=== PATIENT | male | born 1970 | race Caucasian/White ===

== ENCOUNTER 2019-05-10 21:34 | Inpatient (IN) ==
[2019-05-10] MEDS ORDERED: GEODON IM ONE (21:48)
[2019-05-10] MEDS ORDERED: BENADRYL IM ONE (21:48)
[2019-05-10] MEDS ORDERED: STERILE WATER INJ. INJ ONE (21:48)
[2019-05-10] MEDS ORDERED: ATIVAN IM ONE (21:48)
[2019-05-10] MEDS ORDERED: HALDOL IM ONE (21:49)
[2019-05-10] MEDS ORDERED: GEODON ONE (21:54)
[2019-05-10] MEDS ORDERED: HALDOL ONE (21:54)
[2019-05-10] MEDS ORDERED: BENADRYL ONE (21:54)
[2019-05-10] MEDS ORDERED: ATIVAN ONE (21:54)
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
[2019-05-10] MEDS ORDERED: NS 1,000 ML IV ONE ×2 (22:21→23:43)
[2019-05-10 22:57] LABS: UR AMPHETAMINES QUAL PRESUMPTIVE POSITIVE (NONE DETECT); UR BARBITUATES QUAL NONE DETECTED (NONE DETECT); UR BENZODIAZEPIN QUAL NONE DETECTED (NONE DETECT); UR CANNABINOIDS QUAL NONE DETECTED (NONE DETECT); UR COCAINE QUAL NONE DETECTED (NONE DETECT); UR METHADONE QUAL NONE DETECTED (NONE DETECT); UR OPIATES QUAL NONE DETECTED (NONE DETECT); UR OXYCODONE QUAL NONE DETECTED (NONE DETECT); UR PCP QUAL NONE DETECTED (NONE DETECT)
[2019-05-10 23:07] LABS: INR 1.08; PROTIME 14.1 Seconds (11.0-16.0)
[2019-05-10 23:08] LABS: PTT 23.9 Seconds (22.3-41.8)
[2019-05-10 23:12] LABS: AGAP 21; ALB/GLOB RATIO 1.8; ALBUMIN 4.4 g/dL (3.5-5.0); ALKALINE PHOSPHATASE 50 U/L (32-122); BUN 9 mg/dL (8-22); CHLORIDE 99 mmol/L (98-107); COSMO 275; CREATININE 1.2 mg/dL (0.7-1.2); ESTIMATED GFR > 60; GLUCOSE 107 mg/dL (70-104); GOT 22 U/L (10-34); GPT 14 U/L (10-44); POTASSIUM 3.5 mmol/L (3.5-5.1); SODIUM 138 mmol/L (136-145); TCO2 18 mmol/L (25-35); TOTAL BILIRUBIN 0.38 mg/dL (0.20-1.00); TOTAL PROTEIN 6.8 g/dL (6.3-8.3)
[2019-05-10 23:16] LABS: BASO# 0.01 X1000 (0.0-0.2); BASO% 0.1 % (0.0-0.8); HEMATOCRIT 39.2 % (42.0-52.0); HEMOGLOBIN 13.9 g/dL (14.0-18.0); IMM GRAN# 0.02 X1000 (0.0-0.04); IMM GRAN% 0.2 % (0.0-0.5); LYMPH# 0.77 X1000 (1.2-3.4); LYMPH% 6.6 % (20.5-51.1); MCH 33.3 PG (27-31); MCHC 35.5 g/dL (33-37); MONO# 0.84 X1000 (0.11-0.59); MONO% 7.2 % (1.7-9.3); MPV 9.5 FL (7.4-10.4); NEUT# 9.99 X1000 (1.4-6.5); NEUT% 85.9 % (42.2-75.2); PLT 281 X1000 (130-400); RBC 4.17 XMIL (4.7-6.1); RDW 12.4 % (11.5-14.5); WBC 11.63 X1000 (4.8-10.8)
[2019-05-11 00:08] LABS: CK INDEX 1.6 (0.0-2.5); CK-MB 9.47 ng/mL (0.0-5.0)
[2019-05-11] MEDS ORDERED: NS 1,000 ML IV ONE ×2 (00:32→02:07)
--- NOTE | 2019-05-11 04:42 | EKG Report ---
Test Performed on : 05/10/2019 11:19:53 PM Test Reason : POSSIBLE OD Blood Pressure : / mmHG Vent. Rate : 094 BPM Atrial Rate : 094 BPM P-R Int : 168 ms QRS Dur : 104 ms QT Int : 388 ms P-R-T Axes : 048 -32 033 degrees QTc Int : 485 ms Normal sinus rhythm. Left axis deviation Possible Inferior infarct , age undetermined Abnormal ECG No previous ECGs available Unconfirmed Result
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
[2019-05-11] MEDS ORDERED: ZOFRAN IV PRN (05:29)
[2019-05-11] MEDS ORDERED: TYLENOL PO PRN (05:29)
[2019-05-11] MEDS: NS 1,000 ML IV SCH ×3 (05:52→19:00)
[2019-05-11 05:57] LABS: IRON SATURATION 14 %; TIBC 242 ug/dL; TOTAL IRON 34 ug/dL (53-167); UNBOUND IRON 208 ug/dL (112-346)
[2019-05-11] MEDS: THIAMINE 100 MG in NS 50 ML IV SCH (06:01)
[2019-05-11 06:16] LABS: FERRITIN 149 ng/mL (30-400)
--- NOTE | 2019-05-11 09:47 | Diag Imaging Result Doc PS360 ---
EXAM: CT HEAD/C-SPINE W/O CONTRAST INDICATION: HEAD INJURY TECHNIQUE: This exam was performed using automated exposure control, adjustment of mA or kV according to patient size, and/or use of iterative reconstruction technique. COMPARISON: None. FINDINGS: Head: There is no definite acute infarct given the limited sensitivity of CT versus MRI. There is no discrete intracranial mass, mass effect, or intracranial hemorrhage. The surrounding soft tissues are essentially unremarkable. The calvaria is intact. C-spine: There is multilevel moderate degenerative disc disease seen throughout the cervical spine with endplate marginal osteophyte formation. This appears to be most significant at C6-7 where there is an osteophyte is causing moderate central canal and left neuroforaminal stenosis. There are varying degrees of foraminal stenosis throughout the cervical spine. Otherwise, there is no discrete fracture, subluxation, or intrinsic osseous lesion involving the cervical spine. There is fragmentation at the tip of the anterior spine of the maxilla. This is of unknown acuity. In the right clinical scenario, an acute fracture is possible. Please correlate clinically for point tenderness just under the nose near the midline. The surrounding soft tissues are essentially unremarkable. IMPRESSION: 1.No evidence of acute intracranial pathology. 2.Moderate multilevel degenerative arthropathy but no evidence of fracture or other definite acute C-spine injury. 3.Small bony fragment at the tip of the anterior maxillary spine of unknown acuity. Please correlate clinically. Electronically signed by Kevon Nicholas 05/11/2019 9:44 AM
[2019-05-11 13:40] LABS: CK INDEX 1.4 (0.0-2.5); CK-MB 14.71 ng/mL (0.0-5.0)
[2019-05-12] MEDS: NS 1,000 ML IV SCH ×4 (01:04→20:28)
[2019-05-12] MEDS: THIAMINE 100 MG in NS 50 ML IV SCH (04:34)
[2019-05-12 06:46] LABS: AGAP 7; BUN 7 mg/dL (8-22); CALCIUM 7.4 mg/dL (8.8-10.2); CHLORIDE 109 mmol/L (98-107); CK PROFILE 958 U/L (24-204); COSMO 278; CREATININE 0.8 mg/dL (0.7-1.2); ESTIMATED GFR > 60; GLUCOSE 102 mg/dL (70-104); MAGNESIUM 1.8 mg/dL (1.5-2.7); POTASSIUM 3.9 mmol/L (3.5-5.1); SODIUM 140 mmol/L (136-145); TCO2 24 mmol/L (25-35)
[2019-05-12 07:09] LABS: CK INDEX 1.1 (0.0-2.5); CK-MB 10.07 ng/mL (0.0-5.0)
--- NOTE | 2019-05-12 07:38 | EKG Report ---
Test Performed on : 05/12/2019 06:59:35 AM Test Reason : chest pain Blood Pressure : / mmHG Vent. Rate : 068 BPM Atrial Rate : 068 BPM P-R Int : 178 ms QRS Dur : 102 ms QT Int : 434 ms P-R-T Axes : 054 -22 032 degrees QTc Int : 461 ms Normal sinus rhythm. with sinus arrhythmia. Normal ECG When compared with ECG of 10-MAY-2019 23:19, (Unconfirmed) No significant change was found Confirmed by Jeremías YI, Vladimir Hahn ([id number]) on 05/14/2019 9:37:21 PM
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
[2019-05-13] MEDS: NS 1,000 ML IV SCH ×3 (03:58→11:31)
[2019-05-13] MEDS: THIAMINE 100 MG in NS 50 ML IV SCH ×2 (04:27→07:12)
[2019-05-13 06:20] LABS: AGAP 8; BUN 6 mg/dL (8-22); CALCIUM 7.4 mg/dL (8.8-10.2); CHLORIDE 106 mmol/L (98-107); COSMO 277; CREATININE 0.8 mg/dL (0.7-1.2); ESTIMATED GFR > 60; GLUCOSE 101 mg/dL (70-104); POTASSIUM 3.7 mmol/L (3.5-5.1); SODIUM 140 mmol/L (136-145); TCO2 26 mmol/L (25-35)
[2019-05-13 06:28] LABS: CK PROFILE 761 U/L (24-204)
[2019-05-13 07:08] LABS: CK INDEX 0.7 (0.0-2.5); CK-MB 5.48 ng/mL (0.0-5.0)
[2019-05-13 15:37] VITALS: BP 123/66
[2019-05-13] MEDS ORDERED: PNEUMOVAX 23 IM ONE (17:04)
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
== END 2019-05-13 18:14 | DRG 558 ==
LOC: SUPCPDRO → ED 21:34 → 2N 05-11 04:49 → SUATTDRO 05-11 04:49
PROVIDERS: ATTEND Internal Medicine